=== PATIENT | male | born 1985 | race Caucasian/White ===

== ENCOUNTER 2024-01-31 06:34 | Emergency (ER) | payer MEDICAID ==
[~2024-01-31] VITALS: Ht 177.8 cm; Wt 84.0 kg
[2024-01-31 06:37] VITALS: TEMP 97.8; O2SAT 100
[2024-01-31 07:26] VITALS: BP 132/96; PULSE 103; RESP 16
[2024-01-31] MEDS: IBUPROFEN 600MG TABLET PO STA (07:26)
[2024-01-31] MEDS ORDERED: IBUP-2029 MT (09:24)
[2024-01-31] MEDS ORDERED: CYCL10TA21 MT (09:24)
== END 2024-01-31 10:19 | disposition home or self-care (01) ==
LOC: ER 06:34
DX: S40.011A Contusion of right shoulder, initial encounter (principal); S20.212A Contusion of left front wall of thorax, initial encounter; W18.39XA Other fall on same level, initial encounter; Y93.89 Activity, other specified; Y92.89 Other specified places as the place of occurrence of the external cause; Y99.8 Other external cause status
CPT/HCPCS: 71045; 73030; 99284